=== PATIENT | female | born 1960 | race Caucasian/White ===

== ENCOUNTER 2016-09-13 05:19 | Inpatient (IN) ==
[2016-09-13] MEDS ORDERED: VANCOMYCIN INJ 1,000 MG in SODIUM CHLORIDE 0.9% 250 ML IV ONE (06:00)
[2016-09-13] MEDS ORDERED: ceFAZolin 1,000 MG VIAL ONE (06:00)
[2016-09-13] MEDS ORDERED: VANCOMYCIN 1,000 MG VIAL ONE (06:00)
[2016-09-13] MEDS ORDERED: SODIUM CHLORIDE 0.9% 100 ML IV ONE (06:01)
[2016-09-13] MEDS ORDERED: ALBUTEROL/IPRATROPIUM 3 ML NEB RESP TX SCH (07:00)
--- NOTE | 2016-09-13 07:04 | History and Physical Update ---
History and Physical Update - History and Physical H&P was reviewed, the patient examined and there: are no changes in the patients condition since last H&P was completed.
[2016-09-13] MEDS ORDERED: BISACODYL 10 MG SUPP RECTAL PRN (07:10)
[2016-09-13] MEDS ORDERED: MAGNESIUM HYDROXIDE SUSP 30 ML UDCUP PO PRN (07:10)
[2016-09-13] MEDS ORDERED: NALOXONE 0.4 MG/ML VIAL IV PRN (07:10)
[2016-09-13] MEDS ORDERED: ONDANSETRON 4 MG/2 ML VIAL IV PRN (07:10)
[2016-09-13] MEDS ORDERED: TEMAZEPAM 7.5 MG CAPSULE PO PRN (07:10)
[2016-09-13] MEDS ORDERED: LACTULOSE 20 GM/30 ML UDCUP PO PRN (07:10)
[2016-09-13] MEDS ORDERED: HYDROmorphone 2 MG/1 ML VIAL IV PRN (07:10)
[2016-09-13] MEDS ORDERED: diphenhydrAMINE CAP 25 MG CAPSULE PO PRN (07:10)
[2016-09-13] MEDS ORDERED: PROMETHAZINE 25 MG/1 ML VIAL IM PRN (07:10)
[2016-09-13] MEDS ORDERED: LORazepam 1 MG TABLET PO ONE (07:13)
[2016-09-13] MEDS ORDERED: PANTOPRAZOLE 40 MG TABLET PO ONE ×2 (07:13→07:46)
[2016-09-13] MEDS ORDERED: LORazepam 1 MG TABLET ONE (07:46)
[2016-09-13] MEDS ORDERED: TRANEXAMIC ACID 1,000 MG/10 ML VIAL IV ONE (08:46)
[2016-09-13] MEDS ORDERED: PHENYLEPHRINE 1 MG/10 ML SYRINGE IV ONE (09:06)
[2016-09-13] MEDS ORDERED: LIDOCAINE 1% 5 ML VIAL ONE (09:06)
[2016-09-13] MEDS ORDERED: PROPOFOL 200 MG/20 ML VIAL IV ONE (09:06)
[2016-09-13] MEDS ORDERED: ONDANSETRON 4 MG/2 ML VIAL ONE (09:06)
[2016-09-13 10:38] LABS: Apearance,Urine CLEAR (Clear); Bilirubin,Urine Negative (Negative); Blood, Urine Negative (Negative); Glucose,Urine (UA) Negative (Negative); Ketones,Urine Negative (Negative); Mucus,Urine Occasional /LPF (Occasional); Nitrite,Urine Negative (Negative); Protein,Urine Negative; RBC,Urine <1 /HPF (0-4); Urine Color Yellow (Yellow); Urine Specific Gravity 1.015 (1.001-1.035); WBC,Urine 1 /HPF (0-6)
[2016-09-13] MEDS ORDERED: fentaNYL 100 MCG/2 ML VIAL ONE (10:54)
[2016-09-13] MEDS ORDERED: MIDAZOLAM 2 MG/2 ML VIAL ONE (10:54)
[2016-09-13] MEDS ORDERED: HYDROmorphone PCA 30 MG/30 ML SYRINGE IV ONE (11:02)
[2016-09-13] MEDS: HYDROmorphone PCA 30 MG/30 ML SYRINGE IV SCH (11:06)
--- NOTE | 2016-09-13 11:48 | XRay Report ---
Exam: XR hip OR LT Date: 09/13/2016 12:00 AM Comparison: None Indication: Left total hip replacement Technique:[Portable AP left hip] Findings: Recent satisfactory left total hip replacement. Postoperative findings noted. Impression: Reason satisfactory left total hip replacement. PROCEDURE INTERPRETED AT [facility] DEPARTMENT OF RADIOLOGY Final Report Signed by: Dr. Nafisa Moses
[2016-09-13] MEDS: DOCUSATE SODIUM 100 MG CAPSULE PO SCH ×2 (12:05→20:53)
[2016-09-13] MEDS: LACTATED RINGERS 1,000 ML IV SCH (12:22)
--- NOTE | 2016-09-13 12:58 | Anesthesia Post-Op ---
Anesthesia Post OP - Post Ansesthetic Evaluation Patient seen in post op: Yes Resp: within normal limits CV: within normal limits Mental: within normal limits Temp: within normal limits [id number]: within normal limits Nausea and Vomiting: within normal limits Pain: within normal limits
--- NOTE | 2016-09-13 16:43 | Pulmonology Consult Note ---
Assessment and Plan (1) Postop left hip replaced Status: Acute Assessment and plan: Not having much pain. She will need to get up and walk more. She look forward to doing that. Current Visit: Yes (2) COPD (chronic obstructive pulmonary disease) Status: Acute Assessment and plan: She is a persistent cigarette smoker up until admission. Advised to stop smoking here. She was on oxygen prior to admission. Her COPD is really not severe. Low flow oxygen should suffice. Current Visit: No History of Present Illness Chief complaint: Postop left hip replacement History of present illness: Ms. Guthrie is a 56 year old female who was seen by us about 2 weeks ago in the office for clearance for the surgery. She is a long-term cigarette smoker. She has been diagnosed as having mild chronic obstructive pulmonary disease. She is on oxygen at home. She has not had any recent flareups. Since surgery she is doing okay. She is not short of breath and not having a lot of pain. She says she is anxious to get up and start with physical therapy. Home Medications Medication Instructions Recorded Confirmed Type Esomeprazole Magnesium [Nexium] 40 mg PO DAILY 12/13/15 09/13/16 History Pregabalin [Lyrica] 150 mg PO BID 12/13/15 09/13/16 History busPIRone [Buspar] 10 mg PO BID 12/13/15 09/13/16 History Atorvastatin [Lipitor] 10 mg PO DAILY 12/16/15 09/13/16 History Cholecalciferol (Vitamin D3) 1,000 unit PO BEDTIME 12/16/15 09/13/16 History [Vitamin D3] Hydrocodone/Acetaminophen 1 tablet PO QID PRN 12/16/15 09/13/16 History [Hydrocodon-Acetaminophn 10-325] Trazodone HCl 150 mg PO BEDTIME PRN 12/16/15 09/13/16 History Vortioxetine Hydrobromide 20 mg PO DAILY 12/16/15 09/13/16 History [Brintellix] hydrOXYzine HCl [Hydroxyzine HCl] 25 mg PO TID PRN 12/16/15 09/13/16 History Albuterol Inhaler [Proventil 2 puff INH Q4H PRN 09/13/16 09/13/16 History Inhaler] Albuterol Neb [Proventil Neb] 2.5 mg RESP TX Q8HR PRN 09/13/16 09/13/16 History Cyclobenzaprine [Flexeril] 10 mg PO TID 09/13/16 09/13/16 History Metoclopramide Liquid [Reglan 10 mg PO BID 09/13/16 09/13/16 History Liquid] Tiotropium Inhalation [Spiriva 18 mcg INH DAILY 09/13/16 09/13/16 History Handihaler] Allergies Allergy/AdvReac Type Severity Reaction Status Date / Time No Known Allergies Allergy Verified 09/04/16 07:55 12 point system: reviewed and no additional remarkable complaints except as stated - Constitutional Constitutional: Present: night sweats, weight loss (5 pounds in 6 months) - EENT Eyes: Present: requires corrective lense - Cardiovascular Cardiovascular: Present: PND - Respiratory Respiratory: Present: cough, dyspnea on exertion, wheezing - Gastrointestinal Gastrointestinal: Present: dyspepsia - Musculoskeletal Musculoskeletal: Present: arthralgias (Left hip pain), back pain Exam (Pulmonay) H&P - Constitutional Vitals: Period Temp Pulse Resp BP Sys/Vale Pulse Ox Last 24 Hr 97.3 F-97.8 F 62-84 16-20 92-112/51-79 89-96 Exam: Vital signs normal. O2 sat 96% on 3 L. Pupils react to light. Throat is clear. Neck supple no bruits. Chest is clear equal breath sounds. Heart normal rate and rhythm no murmurs no rubs no gallops. Abdomen soft nontender no masses. Bowel sounds present. Extremities no clubbing cyanosis or edema. She has a brace on the left leg. Bandage on the left hip. Calves are nontender. Wearing sequential compression hose. Medical,Surgical,& Family Hx - Medical History Psychological: History of: Anxiety Disorders, Psychiatric/Substance Abuse Tx ( Chronic Opioid Use) Neurology: No history of: Seizures HEENT: History of: Eye Problem (GLASSES), Dental Problems (dentures) Endocrine: History of: Dyslipidemia Rheumatology: History of;: Rheumatoid Arthritis Respiratory: History of: COPD Genitourinary: History of: Recurring Urinary Tract Infections Gastrointestinal: History of: GERD Musculoskeletal: History of: Musculoskeletal Problems (Chronic Hips and Back pain-pain clinic at [place]) Other: No history of: Anesthesia Reactions - Surgical History Abdominal Surgeries: Surgical HX of: Cholecystectomy Reproductive Surgeries: Surgical HX of;: Hysterectomy Orthopedic Surgeries: Surgical HX of;: Orthopedic Surgery (RIGHT FOOT), Total Hip Replacement (Bilateral) - Family History Family History: Reports;: Family Cancer (GRANDFATHER) - Social History Smoking Status: Current every day smoker Frequency of Alcohol Use: None Type of Drug Use: Opiates Results - Labs Lab Results: I have reviewed the past 24 hour labs Labs: Labs were reviewed on outpatient visit 2 weeks ago. Had normal hematocrit 43.2. White count slightly elevated at 14,900. PT/INR was normal. Chemistries showed creatinine of 0.73 BUN is 9 potassium 4.5. Urinalysis was normal. - Diagnostic Findings Procedure: Chest x-ray: image reviewed by me (Chest x-ray outpatient showed borderline enlargement of the german. Mild scarring in the lingula.)
--- NOTE | 2016-09-13 16:58 | Operative Note ---
DATE: 09/13/2016 PREOPERATIVE DIAGNOSIS: OSTEOARTHRITIS LEFT HIP. POSTOPERATIVE DIAGNOSIS: SAME. OPERATIVE PROCEDURE: Left total hip (S-ROM). SURGEON: Edward Toscano Jr., MD ANESTHESIA: Spinal. INDICATIONS: A 56-year-old white female with severe osteoarthritis left hip. She has done very well from a similar procedure on the right side and presenting today for her left to be done. She has se daily pain limiting ability to stand, ambulate, and perform functional activity including activities o f daily living. OPERATIVE PROCEDURE: The patient was taken to the operating room and under spinal anesthetic positio omer in the right lateral decubitus position. The left hip and lower extremity prepped and draped in usual sterile manner. She received Vancomycin and Ancef preoperatively. A curvilinear incision was made over the posterolateral aspect of the left hip. Sharp dissection was carried down through skin and subcutaneous tissue. The IT band and gluteus were split. The hip internally rotated, and short rotators and capsule were reflected off the back of the proximal femur. The capsule was split and pr eserved for later repair. The head was dislocated and resected. The acetabulum was exposed sequenti ally reaming up to 53 and 54 cup press-fit in place, secured with one screw and a 10-degree all polye thylene liner placed. The proximal femur was prepared for the S-ROM component, distal diameter measu ring 13, the sleeve was 18B small, the femoral stem was a 36 standard +8 neck. Trialed reduction hilaria ecting a -3 head. After removal of the trial components, the S-ROM sleeve and stem were inserted and then trialed reduction again selecting the -3 head. The hip was dislocated a final time as head exc hanged for the -3, 36 mm head and the hip relocated. It was stable through range of motion and limb lengths equalized. The hip was then irrigated. The capsule was closed with #1 Vicryl. Hemostasis v erified and two 1/8-inch Hemovac drains were placed. The IT band and gluteal layer closed with #1 Vi cryl, subcutaneous layer closed with 2-0 Vicryl, tono for skin. A sterile dressing was applied an d she was rolled supine, abduction pillow placed, taken to the recovery room in stable condition. In traoperative films confirming satisfactory position of her implants.
--- NOTE | 2016-09-13 17:33 | Orthopedic Progress Note ---
Orthopedics - Subjective Interval history: Comfortable neurovascular intact discussed up in a.m. Exam - Constitutional Vitals: Period Temp Pulse Resp BP Sys/Vale Pulse Ox Last 24 Hr 97.3 F-98.4 F 58-84 16-20 88-127/50-79 89-96
[2016-09-14 05:34] LABS: Calcium 8.3 MG/DL (8.5-10.1); Osmolality,Calculated 281.1 MOS/KG (273-304); Potassium 3.7 MMOL/L (3.5-5.1)
[2016-09-14] MEDS: FONDAPARINUX 2.5 MG/0.5 ML SYRINGE SUBCUT SCH (06:09)
[2016-09-14 06:42] LABS: Basophils % 0.2 % (0.0-0.8); Eosinophils # 0.2 10*3/uL (0.0-0.87); Eosinophils % 1.1 % (0.00-10.9); Hematocrit 33.9 VOL% (35.7-47.0); Hemoglobin 11.8 GM/DL (12.0-16.0); Immature Granulocytes % 0.4 %; Immature Granulocytes Absolute 0.08 #; Lymphocytes # 4.7 10*3/uL (1.4-4.0); Lymphocytes % 25.4 % (21.3-54.2); Mean Corpuscular HGB Conc 34.8 GM/DL (32-36); Mean Corpuscular Hemoglobin 33 PG (27-34); Mean Corpuscular Volume 94.4 FL (87-102); Mean Platelet Volume 11.7 FL (9.6-12.0); Monocytes # 1.4 10*3/uL (0.11-0.8); Monocytes % 7.3 % (1.7-12.7); Neutrophils # 12.1 10*3/uL (1.4-7.4); Neutrophils % 65.6 % (38.7-73.9); Platelet Count 194 T/CUMM (130-400); Red Blood Count 3.59 MC/CUMM (3.8-5.5); Red Cell Distribution Width 14.2 % (9.3-17.3); White Blood Count 18.5 T/CUMM (4-12)
[2016-09-14] MEDS: LACTATED RINGERS 1,000 ML IV SCH ×3 (07:05→22:38)
[2016-09-14] MEDS: HYDROmorphone PCA 30 MG/30 ML SYRINGE IV SCH (07:58)
--- NOTE | 2016-09-14 08:22 | Orthopedic Progress Note ---
Orthopedics - Subjective Interval history: H&H stable comfortable neurovascular intact drain removed will start PT today wanting to go home with home health likely this weekend discussed. Exam - Constitutional Vitals: Period Temp Pulse Resp BP Sys/Vale Pulse Ox Last 24 Hr 97.3 F-99.7 F 58-84 16-20 88-127/50-79 89-96 Results - Labs CBC & BMP: 09/14/16 03:47 09/14/16 03:47 Specialty Discharge - Follow Up or Referrals Follow up with: Edward Toscano Jr., MD [Physician] -
[2016-09-14] MEDS: DOCUSATE SODIUM 100 MG CAPSULE PO SCH ×2 (08:43→20:10)
--- NOTE | 2016-09-14 08:45 | Pulmonology Progress Note ---
Pulmonary - PN: Subj Interval history: This is a 56-year-old lady that had a left hip replacement yesterday. She has COPD. She uses oxygen at night at home. O2 sats have been acceptable here. She is not having any bronchospasm. Starting to get out of bed today. Exam (Progress Note) - Constitutional Vitals: Period Temp Pulse Resp BP Sys/Vale Pulse Ox Last 24 Hr 97.3 F-99.7 F 58-84 16-20 88-127/50-79 89-96 Exam: Vital signs normal. Pupils react to light. Throat is clear. Neck supple no bruits. Chest sounds clear. Heart normal rate rhythm no murmurs. Abdomen soft nontender no masses. Extremities no clubbing cyanosis edema. Bandage over left hip. Sequential compression hose in place Results - Labs CBC & BMP: 09/14/16 03:47 09/14/16 03:47 Lab Results: I have reviewed the past 24 hour labs Assessment and Plan (1) Postop left hip replaced Status: Acute Assessment and plan: Not having much pain. She will need to get up and walk more. She look forward to doing that. 09/14/2016 patient to start with physical therapy today. She said she did her rehab at home with her last hip replacement. Not clear whether she will need swing bed or rehab or go home. Current Visit: Yes (2) COPD (chronic obstructive pulmonary disease) Status: Acute Assessment and plan: She is a persistent cigarette smoker up until admission. Advised to stop smoking here. She was on oxygen prior to admission. Her COPD is really not severe. Low flow oxygen should suffice. 09/14/2016 continuing empiric bronchodilators. O2 sats look good. Current Visit: No Specialty Discharge - Follow Up or Referrals Follow up with: Edward Toscano Jr., MD [Physician] -
[2016-09-15] MEDS: FONDAPARINUX 2.5 MG/0.5 ML SYRINGE SUBCUT SCH (05:57)
[2016-09-15 06:23] LABS: Basophils % 0.2 % (0.0-0.8); Eosinophils # 0.5 10*3/uL (0.0-0.87); Hematocrit 30.9 VOL% (35.7-47.0); Hemoglobin 11.2 GM/DL (12.0-16.0); Immature Granulocytes % 0.5 %; Immature Granulocytes Absolute 0.08 #; Lymphocytes # 4.6 10*3/uL (1.4-4.0); Mean Corpuscular HGB Conc 36.2 GM/DL (32-36); Mean Corpuscular Hemoglobin 33 PG (27-34); Mean Corpuscular Volume 92.2 FL (87-102); Mean Platelet Volume 11.4 FL (9.6-12.0); Monocytes # 1.5 10*3/uL (0.11-0.8); Monocytes % 8.2 % (1.7-12.7); Neutrophils % 62.1 % (38.7-73.9); Platelet Count 186 T/CUMM (130-400); Red Blood Count 3.35 MC/CUMM (3.8-5.5); Red Cell Distribution Width 13.9 % (9.3-17.3); White Blood Count 17.8 T/CUMM (4-12)
[2016-09-15] MEDS: DOCUSATE SODIUM 100 MG CAPSULE PO SCH (08:55)
--- NOTE | 2016-09-15 09:09 | Orthopedic Progress Note ---
Orthopedics - Subjective Interval history: Comfortable H&H stable ambulating in the coppola wants to go home this afternoon discussed. Will follow up in 2 weeks Exam - Constitutional Vitals: Period Temp Pulse Resp BP Sys/Vale Pulse Ox Last 24 Hr 97.6 F-100.1 F 76-96 18-20 97-123/52-74 90-98 Results - Labs CBC & BMP: 09/15/16 05:41 09/14/16 03:47 Specialty Discharge - Follow Up or Referrals Follow up with: Edward Toscano Jr., MD [Physician] -
--- NOTE | 2016-09-15 09:11 | Discharge Summary ---
Hospital Course - Hospital Course Hospital Course: Admitted for elective left total hip discharged home Diagnosis - Discharge Diagnosis (1) Osteoarthritis of left hip Status: Acute Specialty Discharge - Follow Up or Referrals Follow up with: Edward Toscano Jr., MD [Physician] - Discharge Plan - Discharge Data Disposition: Disch To Home/Self Care Condition at Discharge: Stable Discharge Diet: advance to your usual diet Activity: ambulate only with your walker, as per physical therapy (Advancing weight-bear to full with hip precaution) Hygiene: may shower, keep area(s) dry Weight Bearing at Discharge: weight bear as tolerated Driving: not until seen by doctor - Discharge Medications New HYDROcodone/ACETAMIN 7.5-325 [[place] 7.5-325] 2 tablet PO Q4H PRN #30 tablet PRN Reason: Moderate Pain unrelieved by 1 Continue Pregabalin [Lyrica] 150 mg PO BID busPIRone [Buspar] 10 mg PO BID Esomeprazole Magnesium [Nexium] 40 mg PO DAILY Hydrocodone/Acetaminophen [Hydrocodon-Acetaminophn 10-325] 1 tablet PO QID PRN PRN Reason: Pain Cholecalciferol (Vitamin D3) [Vitamin D3] 1,000 unit PO BEDTIME Vortioxetine Hydrobromide [Brintellix] 20 mg PO DAILY hydrOXYzine HCl [Hydroxyzine HCl] 25 mg PO TID PRN PRN Reason: nerves Atorvastatin [Lipitor] 10 mg PO DAILY Trazodone HCl 150 mg PO BEDTIME PRN PRN Reason: Sleep Metoclopramide Liquid [Reglan Liquid] 10 mg PO BID Cyclobenzaprine [Flexeril] 10 mg PO TID Albuterol Inhaler [Proventil Inhaler] 2 puff INH Q4H PRN PRN Reason: Shortness Of Breath/Wheezing Albuterol Neb [Proventil Neb] 2.5 mg RESP TX Q8HR PRN PRN Reason: sob Tiotropium Inhalation [Spiriva Handihaler] 18 mcg INH DAILY - Follow Up or Referral Follow Up: Edward Toscano Jr., MD [Physician] - - Forms/Instructions Instructions: Total Hip Replacement (DC) Additional Discharge Instructions: Discharged home discharge medications [place] 7.5 #30 no refills enteric-coated aspirin once a day resume home meds advancing with walker P and PT as instructed. Weightbearing as tolerated with hip precautions follow-up with pa September 27 for staple removal Exam - Constitutional Vitals: Period Temp Pulse Resp BP Sys/Vale Pulse Ox Last 24 Hr 97.6 F-100.1 F 76-96 18-20 97-123/52-74 90-98 Discharge Results Labs on day of discharge: Labs from last 24 hours 09/15/16 05:41 WBC 17.8 H RBC 3.35 L Hgb 11.2 L Hct 30.9 L MCV 92.2 MCH 33 MCHC 36.2 H RDW 13.9 Plt Count 186 MPV 11.4 Neut % (Auto) 62.1 Lymph % (Auto) 26.0 [place] % (Auto) 8.2 Eos % (Auto) 3.0 Baso % (Auto) 0.2 Neut # (Auto) 11.0 H Lymph # (Auto) 4.6 H [place] # (Auto) 1.5 H Eos # (Auto) 0.5 Baso # (Auto) 0.0 Immature Gran % 0.5 Nucleated RBC % 0.0 Immature Gran # 0.08 Nucleated RBCs # 0.00 DS: Provider Date of admission: 09/13/16 05:19 Primary care physician: Alexey Santana MD Attending physician on admission: Edward Toscano Jr., MD Consults: 09/13/16 07:10 Consult to Case Mgmt/Social Srvs [CONS] Routine Reason for Case Mgmt/Social Srvs: Rehab Home Health Equipment Consult Comment: Bedside Commode, CPM, Walker Consult to Occupational Therapy [CONS] Routine Reason for Occupational Therapy: Evaluate and Treat Consult Comment: ADL's Consult to Physical Therapy [CONS] Routine Reason for Physical Therapy: Evaluate and Treat Gait Training 09/13/16 11:42 Consult to Physician [CONS] Routine Comment: Consulting Provider: Alexey Santana Consulting Provider Notified: Yes When should Consulting Provider be notified: Now Person Notified: beatriz [email or web address] Date Notified: 09/13/16 Time Notified: 12:59 Discharging clinician: Edward Toscano Jr., MD
--- NOTE | 2016-09-15 09:44 | Pulmonology Progress Note ---
Pulmonary - PN: Subj Interval history: This is a 56-year-old lady that had a left hip replacement yesterday. She has COPD. She uses oxygen at night at home. O2 sats have been acceptable here. She is not having any bronchospasm. Starting to get out of bed today. 09/15/2016 patient doing well with physical therapy post left hip replacement. She is going home to continue rehab there. She seems well motivated. Lungs have been clear. Exam (Progress Note) - Constitutional Vitals: Period Temp Pulse Resp BP Sys/Vale Pulse Ox Last 24 Hr 97.6 F-100.1 F 76-96 18-20 97-123/52-74 90-98 Exam: Vital signs normal. Pupils react to light. Throat is clear. Neck supple no bruits. Chest sounds clear. Heart normal rate rhythm no murmurs. Abdomen soft nontender no masses. Extremities no clubbing cyanosis edema. Bandage over left hip. Sequential compression hose in place Results - Labs CBC & BMP: 09/15/16 05:41 09/14/16 03:47 Lab Results: I have reviewed the past 24 hour labs Assessment and Plan (1) Postop left hip replaced Status: Acute Assessment and plan: Not having much pain. She will need to get up and walk more. She look forward to doing that. 09/14/2016 patient to start with physical therapy today. She said she did her rehab at home with her last hip replacement. Not clear whether she will need swing bed or rehab or go home. 09/15/2016 agree with plans for discharge. Current Visit: Yes (2) COPD (chronic obstructive pulmonary disease) Status: Acute Assessment and plan: She is a persistent cigarette smoker up until admission. Advised to stop smoking here. She was on oxygen prior to admission. Her COPD is really not severe. Low flow oxygen should suffice. 09/14/2016 continuing empiric bronchodilators. O2 sats look good. 09/15/2016 can follow in the office as required. Current Visit: No Specialty Discharge - Follow Up or Referrals Follow up with: Edward Toscano Jr., MD [Physician] -
[2016-09-15 11:31] VITALS: BP 121/58
--- NOTE | 2016-09-19 14:15 | Pathology Report from [facility] ---
[facility] ACCESSION # : [id number] PATIENT NAME : Francy Guthrie ORDERING DR : THAD WANG JR, MD CLINICAL HX: LT hip osteoarthritis POST-OP DX: Same SPECIMEN INFO: LT hip bone & tissue GROSS DESCRIPTION: Received in formalin labeled FRANCY GUTHRIE is a femoral head measuring 4.5 x 4.5 x 5.8 cm. The articular surfaces are focally degenerative with an area of subchondral eburnation seen measuring 2.0 x 0.8 cm. The cut surface is smooth with no softening appreciated. Received separately in the specimen container are fragments of hemorrhagic bone and soft tissue measuring 2.0 x 3.0 cm in aggregate. Foam Cutting Supervisor tissue is submitted in one cassette following decalcification. DIAGNOSIS FOR FRANCY GUTHRIE: LEFT HIP BONE & TISSUE: Marked chronic inflammation. Bone & bone marrow with trilineage hematopoiesis. Negative for malignancy.The following is a consultation from Dr. Ellis Leon at [facility], [place], [place]:LEFT HIP BONE & TISSUE: Bone & bone marrow with trilineage hematopoiesis. Negative for malignancy. See note.NOTE: CD138 highlights scattered plasma cells. Michael CK is negative. Case reviewed by Dr. Alexey Loaiza. COLLECTED DATE: 09/13/2016 [facility] REPORT DATE: 09/19/2016 ELECTRONICALLY SIGNED BY: Tuan Taylor III, M.D. 09/19/2016 - 13:46:28 [facility]
== END 2016-09-15 12:00 | disposition home or self-care (01) | DRG 301 ==
LOC: N.SDSINP 05:19 → N.3E 11:33
PROVIDERS: ADMIT Orthopaedic Surgery; ATTEND Orthopaedic Surgery

== ENCOUNTER 2018-03-01 18:40 | Observation (INO) ==
[2018-03-01 20:31] LABS: Mean Corpuscular Volume 93.8 FL (87-102); Mean Platelet Volume 10.8 FL (9.6-12.0); Monocytes # 0.8 10*3/uL (0.11-0.8)
[2018-03-01] MEDS ORDERED: ASPIRIN CHEW 81 MG TABLET PO STA (20:37)
[2018-03-01 20:42] LABS: Basophils # 0.1 10*3/uL (0.0-0.2); Basophils % 0.8 % (0.0-0.8); Eosinophils # 0.3 10*3/uL (0.0-0.87); Eosinophils % 1.9 % (0.00-10.9); Hematocrit 42.1 VOL% (35.7-47.0); Hemoglobin 14.7 GM/DL (12.0-16.0); Immature Granulocytes % 0.2 %; Immature Granulocytes Absolute 0.03 #; Lymphocytes # 7.9 10*3/uL (1.4-4.0); Lymphocytes % 57.2 % (21.3-54.2); Mean Corpuscular HGB Conc 34.9 GM/DL (32-36); Mean Corpuscular Hemoglobin 33 PG (27-34); Neutrophils # 4.7 10*3/uL (1.4-7.4); Neutrophils % 33.9 % (38.7-73.9); Platelet Count 251 T/CUMM (130-400); Red Blood Count 4.49 MC/CUMM (3.8-5.5); Red Cell Distribution Width 13.6 % (9.3-17.3); White Blood Count 13.8 T/CUMM (4-12)
[2018-03-01 20:59] LABS: Alanine Aminotransferase 22 U/L (13-56); Albumin 3.4 G/DL (3.4-5.0); Alkaline Phosphatase 93 U/L (45-117); Aspartate Amino Transferase 16 U/L (0-37); Blood Urea Nitrogen 12 MG/DL (7-18); Calcium 9.3 MG/DL (8.5-10.1); Glucose 108 MG/DL (74-106); Osmolality,Calculated 279.4 MOS/KG (273-304); Potassium 3.2 MMOL/L (3.5-5.1); Sodium 140 MMOL/L (136-145); Troponin I < 0.015 NG/ML (0.00-0.045)
[2018-03-01] MEDS ORDERED: ASPIRIN 325 MG TABLET ONE (21:04)
[2018-03-01 21:16] LABS: Atypical Lymphocytes Few; Eosinophils 2 % (0-10); Lymphocytes 57 % (20-55); Platelet Estimate Normal; Segmented Neutrophils 36 % (50-85); Total Cells Counted 100
[2018-03-01] MEDS ORDERED: POTASSIUM CHLORIDE 20 MEQ TABLET PO PRN (21:49)
[2018-03-01] MEDS ORDERED: diphenhydrAMINE CAP 25 MG CAPSULE PO PRN (21:49)
[2018-03-01] MEDS ORDERED: MAGNESIUM SULF RIDER 2 GM in PREMIX 1 EACH IV PRN (21:49)
[2018-03-01] MEDS ORDERED: NICOTINE 21 MG/24 HR PATCH TRANSDERM PRN (21:49)
[2018-03-01] MEDS ORDERED: ACETAMINOPHEN 325 MG TABLET PO PRN (21:49)
[2018-03-01] MEDS ORDERED: ZALEPLON 5 MG CAPSULE PO PRN (21:49)
[2018-03-01] MEDS ORDERED: ONDANSETRON 4 MG/2 ML VIAL IV PRN (21:49)
[2018-03-01] MEDS ORDERED: NITROGLYCERIN SL 0.4 MG TABLET SL PRN (21:49)
[2018-03-01] MEDS ORDERED: MAGNESIUM SULF RIDER 4 GM in PREMIX 1 EACH IV PRN (21:49)
[2018-03-01] MEDS ORDERED: MORPHINE 4 MG/1 ML VIAL IV PRN (21:49)
[2018-03-01 22:18] LABS: Risk Ratio 3.7; Thyroid Stimulating Hormone 1.2 uIU/ml (0.358-3.74); VLDL CHOLESTEROL 21.2 MG/DL
[2018-03-01] MEDS ORDERED: hydrOXYzine HCL 25 MG TABLET PO PRN (23:15)
[2018-03-01] MEDS ORDERED: ALBUTEROL 2.5 MG/3 ML NEB RESP TX PRN ×2 (23:15)
[2018-03-02 04:19] LABS: Basophils # 0.1 10*3/uL (0.0-0.2); Basophils % 0.7 % (0.0-0.8); Eosinophils # 0.3 10*3/uL (0.0-0.87); Eosinophils % 2.2 % (0.00-10.9); Hematocrit 42.7 VOL% (35.7-47.0); Hemoglobin 14.3 GM/DL (12.0-16.0); Immature Granulocytes % 0.3 %; Immature Granulocytes Absolute 0.04 #; Lymphocytes # 6.7 10*3/uL (1.4-4.0); Lymphocytes % 54.7 % (21.3-54.2); Mean Corpuscular HGB Conc 33.5 GM/DL (32-36); Mean Corpuscular Hemoglobin 32 PG (27-34); Mean Corpuscular Volume 95.3 FL (87-102); Mean Platelet Volume 10.9 FL (9.6-12.0); Monocytes # 0.9 10*3/uL (0.11-0.8); Monocytes % 7.2 % (1.7-12.7); Neutrophils # 4.3 10*3/uL (1.4-7.4); Neutrophils % 34.9 % (38.7-73.9); Platelet Count 247 T/CUMM (130-400); Red Blood Count 4.48 MC/CUMM (3.8-5.5); Red Cell Distribution Width 13.6 % (9.3-17.3); White Blood Count 12.3 T/CUMM (4-12)
[2018-03-02 05:11] LABS: Calcium 8.8 MG/DL (8.5-10.1); Osmolality,Calculated 285.8 MOS/KG (273-304); Potassium 3.9 MMOL/L (3.5-5.1)
[2018-03-02 05:36] LABS: Atypical Lymphocytes Few; Eosinophils 3 % (0-10); Lymphocytes 60 % (20-55); Segmented Neutrophils 34 % (50-85); Total Cells Counted 100
[2018-03-02 05:37] LABS: Hypochromasia 1+; Platelet Estimate Normal
[2018-03-02] MEDS: IPRATROPIUM 500 MCG/2.5 ML NEB RESP TX SCH ×3 (08:01→19:33)
[2018-03-02] MEDS ORDERED: VORTIOXETINE HYDROBROMIDE 20 MG PO SCH (09:00)
[2018-03-02] MEDS ORDERED: FORADIL INH SCH (09:00)
[2018-03-02] MEDS: ENOXAPARIN 40 MG/0.4 ML SYRINGE SUBCUT SCH (09:40)
[2018-03-02] MEDS: busPIRone 15 MG TABLET PO SCH ×2 (09:40→21:05)
[2018-03-02] MEDS: PANTOPRAZOLE 40 MG TABLET PO SCH (09:40)
[2018-03-02] MEDS: METOCLOPRAMIDE 10 MG/10 ML UDCUP PO SCH ×2 (09:40→21:05)
[2018-03-02] MEDS: PREGABALIN 75 MG CAPSULE PO SCH ×2 (09:40→21:05)
[2018-03-02] MEDS: NICOTINE 21 MG/24 HR PATCH TRANSDERM SCH (17:09)
[2018-03-02] MEDS ORDERED: ATORVASTATIN 10 MG TABLET PO SCH (21:00)
[2018-03-02] MEDS: traMADol 50 MG TABLET PO SCH (23:00)
[2018-03-02] MEDS: ACETAMINOPHEN 325 MG TABLET PO SCH (23:00)
[2018-03-03] MEDS: IPRATROPIUM 500 MCG/2.5 ML NEB RESP TX SCH ×2 (01:18→08:01)
[2018-03-03 05:21] LABS: Basophils # 0.1 10*3/uL (0.0-0.2); Basophils % 0.7 % (0.0-0.8); Eosinophils # 0.3 10*3/uL (0.0-0.87); Hematocrit 42.1 VOL% (35.7-47.0); Hemoglobin 14.3 GM/DL (12.0-16.0); Immature Granulocytes % 0.2 %; Immature Granulocytes Absolute 0.03 #; Lymphocytes # 8.2 10*3/uL (1.4-4.0); Lymphocytes % 57.9 % (21.3-54.2); Mean Corpuscular Hemoglobin 33 PG (27-34); Mean Corpuscular Volume 96.6 FL (87-102); Mean Platelet Volume 11.1 FL (9.6-12.0); Monocytes # 0.8 10*3/uL (0.11-0.8); Monocytes % 5.6 % (1.7-12.7); Neutrophils # 4.8 10*3/uL (1.4-7.4); Neutrophils % 33.6 % (38.7-73.9); Platelet Count 244 T/CUMM (130-400); Red Blood Count 4.36 MC/CUMM (3.8-5.5); Red Cell Distribution Width 13.6 % (9.3-17.3); White Blood Count 14.2 T/CUMM (4-12)
[2018-03-03 05:35] LABS: Calcium 8.9 MG/DL (8.5-10.1); Potassium 3.8 MMOL/L (3.5-5.1)
[2018-03-03 06:23] LABS: Band Neutrophils 1 % (0-10); Eosinophils 5 % (0-10); Hypochromasia Slight; Lymphocytes 52 % (20-55); Platelet Estimate Normal; Polychromasia Few; Segmented Neutrophils 33 % (50-85); Total Cells Counted 100
[2018-03-03 08:20] VITALS: BP 138/61
[2018-03-03] MEDS: NICOTINE 21 MG/24 HR PATCH TRANSDERM SCH (08:34)
[2018-03-03] MEDS: PREGABALIN 75 MG CAPSULE PO SCH (08:35)
[2018-03-03] MEDS: busPIRone 15 MG TABLET PO SCH (08:35)
[2018-03-03] MEDS: PANTOPRAZOLE 40 MG TABLET PO SCH (08:35)
[2018-03-03] MEDS: METOCLOPRAMIDE 10 MG/10 ML UDCUP PO SCH (08:35)
[2018-03-03] MEDS: ACETAMINOPHEN 325 MG TABLET PO SCH (08:36)
[2018-03-03] MEDS: traMADol 50 MG TABLET PO SCH (08:36)
[2018-03-03] MEDS: ENOXAPARIN 40 MG/0.4 ML SYRINGE SUBCUT SCH (08:36)
[2018-03-03] MEDS ORDERED: AZITHROMYCIN 250 MG TABLET PO SCH (09:00)
== END 2018-03-03 12:20 | disposition home or self-care (01) ==
LOC: N.EDINP 18:40 → N.ED 18:40 → SUATTDRO 21:49 → N.TELEN 22:36
PROVIDERS: ADMIT Internal Medicine; ATTEND Internal Medicine

== ENCOUNTER 2022-04-04 19:41 | Inpatient (IN) ==
[2022-04-04] MEDS ORDERED: ONDANSETRON 4 MG/2 ML VIAL IV STA (22:38)
[2022-04-04] MEDS ORDERED: PANTOPRAZOLE 40 MG VIAL IV STA (22:38)
[2022-04-04] MEDS ORDERED: methylPREDNISolone SOD SUC 125 MG/2 ML VIAL IV STA (22:38)
[2022-04-04] MEDS ORDERED: ALBUTEROL/IPRATROPIUM 3 ML NEB RESP TX STA (22:38)
[2022-04-04] MEDS ORDERED: SODIUM CHLORIDE 0.9% 500 ML IV STA (22:38)
[2022-04-04 22:50] LABS: RBC,Urine 1 /HPF (0-4); Squamous Epithelial Cell,Urine Occasional /HPF (0-10)
[2022-04-04 22:53] LABS: Basophils # 0.1 10*3/uL (0.0-0.2); Basophils % 0.5 % (0.0-0.8); Bilirubin,Urine Negative (Negative); Blood, Urine Trace mg/dL (Negative); Eosinophils # 0.2 10*3/uL (0.0-0.87); Eosinophils % 1.2 % (0.00-10.9); Glucose,Urine (UA) Negative (Negative); Hematocrit 35.7 VOL% (35.7-47.0); Hemoglobin 11.8 GM/DL (12.0-16.0); Immature Granulocytes % 0.3 %; Immature Granulocytes Absolute 0.04 #; Ketones,Urine Negative (Negative); Lymphocytes # 5.2 10*3/uL (1.4-4.0); Lymphocytes % 41.1 % (21.3-54.2); Mean Corpuscular HGB Conc 33.1 GM/DL (32-36); Mean Corpuscular Volume 84.2 FL (87-102); Mean Platelet Volume 10.6 FL (9.6-12.0); Monocytes # 0.9 10*3/uL (0.11-0.8); Monocytes % 6.9 % (1.7-12.7); Nitrite,Urine Negative (Negative); Platelet Count 417 T/CUMM (130-400); Protein,Urine Negative (Negative); Red Blood Count 4.24 MC/CUMM (3.8-5.5); Red Cell Distribution Width 16.9 % (9.3-17.3); Urine Appearance Clear (Clear); Urine Color Yellow (Yellow); Urine Urobilinogen 0.2 eU/dL (<2.0); White Blood Count 12.7 T/CUMM (4-12)
[2022-04-04 22:55] LABS: PT Patient Result 10.9 SECS (10.1-12.1)
[2022-04-04 23:33] LABS: Alanine Aminotransferase 12 U/L (13-56); Albumin 3.2 G/DL (3.4-5.0); Alkaline Phosphatase 98 U/L (45-117); Aspartate Amino Transferase 15 U/L (0-37); Bilirubin,Total < 0.39 MG/DL (0.20-1.00); Blood Urea Nitrogen 5 MG/DL (7-18); Calcium 9.6 MG/DL (8.5-10.1); Carbon Dioxide 22 MMOL/L (21-32); Chloride 104 MMOL/L (98-107); Glucose 107 MG/DL (74-106); Osmolality,Calculated 271.7 MOS/KG (273-304); Potassium 4.1 MMOL/L (3.5-5.1); Sodium 138 MMOL/L (136-145); Total Protein 6.7 G/DL (6.4-8.2)
[2022-04-05] MEDS ORDERED: ACETAMINOPHEN 325 MG TABLET PO PRN (03:29)
[2022-04-05] MEDS ORDERED: NICOTINE 21 MG/24 HR PATCH TRANSDERM PRN (03:29)
[2022-04-05] MEDS ORDERED: hydrALAZINE 20 MG/1 ML VIAL IV PRN (03:29)
[2022-04-05] MEDS ORDERED: ONDANSETRON 4 MG/2 ML VIAL IV PRN (03:29)
[2022-04-05] MEDS ORDERED: MORPHINE 2 MG/1 ML SYRINGE IV PRN (03:29)
[2022-04-05 05:47] LABS: Basophils % 0.3 % (0.0-0.8); Eosinophils % 0.1 % (0.00-10.9); Hematocrit 35.6 VOL% (35.7-47.0); Hemoglobin 11.7 GM/DL (12.0-16.0); Immature Granulocytes % 0.5 %; Immature Granulocytes Absolute 0.04 #; Lymphocytes # 1.2 10*3/uL (1.4-4.0); Lymphocytes % 16.5 % (21.3-54.2); Mean Corpuscular HGB Conc 32.9 GM/DL (32-36); Mean Corpuscular Volume 85.2 FL (87-102); Mean Platelet Volume 10.9 FL (9.6-12.0); Monocytes # 0.1 10*3/uL (0.11-0.8); Monocytes % 0.7 % (1.7-12.7); Neutrophils % 81.9 % (38.7-73.9); Platelet Count 213 T/CUMM (130-400); Red Blood Count 4.18 MC/CUMM (3.8-5.5); Red Cell Distribution Width 16.9 % (9.3-17.3); White Blood Count 7.4 T/CUMM (4-12)
[2022-04-05 06:08] LABS: Calcium 9.8 MG/DL (8.5-10.1); Potassium 4.1 MMOL/L (3.5-5.1)
[2022-04-05] MEDS: ALBUTEROL/IPRATROPIUM 3 ML NEB RESP TX SCH ×3 (07:10→19:18)
[2022-04-05] MEDS: INSULIN LISPRO 100 UNIT/ML SUBCUT SCH ×4 (07:42→21:16)
[2022-04-05] MEDS ORDERED: PANTOPRAZOLE 40 MG TABLET PO SCH (09:00)
[2022-04-05] MEDS: PANTOPRAZOLE 40 MG VIAL IV SCH ×2 (09:16→21:10)
[2022-04-05 12:13] LABS: Free T4 (Free Thyroxine) 1.1 NG/DL (0.76-1.46); Thyroid Stimulating Hormone 0.597 uIU/ml (0.358-3.74)
[2022-04-05] MEDS ORDERED: GLUCAGON 1 MG VIAL IM PRN (13:12)
[2022-04-05] MEDS ORDERED: DEXTROSE 10% 250 ML BAG IV PRN (13:12)
[2022-04-06] MEDS: ALBUTEROL/IPRATROPIUM 3 ML NEB RESP TX SCH ×4 (01:31→19:16)
[2022-04-06 05:25] LABS: Basophils # 0.1 10*3/uL (0.0-0.2); Basophils % 0.4 % (0.0-0.8); Eosinophils # 0.1 10*3/uL (0.0-0.87); Eosinophils % 0.4 % (0.00-10.9); Hematocrit 30.3 VOL% (35.7-47.0); Hemoglobin 10.1 GM/DL (12.0-16.0); Immature Granulocytes % 0.4 %; Immature Granulocytes Absolute 0.05 #; Lymphocytes # 5.1 10*3/uL (1.4-4.0); Lymphocytes % 39.1 % (21.3-54.2); Mean Corpuscular HGB Conc 33.3 GM/DL (32-36); Mean Corpuscular Volume 84.4 FL (87-102); Monocytes # 0.9 10*3/uL (0.11-0.8); Monocytes % 7.2 % (1.7-12.7); Neutrophils % 52.5 % (38.7-73.9); Platelet Count 406 T/CUMM (130-400); Red Blood Count 3.59 MC/CUMM (3.8-5.5); Red Cell Distribution Width 16.9 % (9.3-17.3); White Blood Count 13.1 T/CUMM (4-12)
[2022-04-06 05:30] LABS: INR 0.9; PT Patient Result 10.3 SECS (10.1-12.1); Partial Thromboplastin Time 28.2 SECS (23.7-32.9)
[2022-04-06] MEDS ORDERED: BENZONATATE 100 MG CAPSULE PO ONE (07:30)
[2022-04-06] MEDS ORDERED: diphenhydrAMINE 50 MG/1 ML VIAL IM ONE (07:30)
[2022-04-06] MEDS ORDERED: MEPERIDINE 50 MG/1 ML VIAL IM ONE (07:30)
[2022-04-06] MEDS: INSULIN LISPRO 100 UNIT/ML SUBCUT SCH ×4 (07:39→20:44)
[2022-04-06] MEDS ORDERED: LIDOCAINE 2% 20 ML VIAL RESP TX ONE (08:00)
[2022-04-06] MEDS ORDERED: LIDOCAINE 1% 20 ML VIAL MISC INJ ONE (08:00)
[2022-04-06] MEDS ORDERED: LIDOCAINE 2% VISCOUS 100 ML BOTTLE SWISH/SPIT ONE (08:00)
[2022-04-06] MEDS: PANTOPRAZOLE 40 MG VIAL IV SCH ×2 (09:53→20:32)
[2022-04-06] MEDS ORDERED: GLUCAGON 1 MG VIAL IM PRN (13:12)
[2022-04-06] MEDS ORDERED: DEXTROSE 50% 25 GM/50 ML VIAL IV PRN (13:12)
[2022-04-06] MEDS: METOCLOPRAMIDE 10 MG/2 ML VIAL IV SCH (18:01)
[2022-04-07] MEDS: ALBUTEROL/IPRATROPIUM 3 ML NEB RESP TX SCH ×4 (00:11→20:10)
[2022-04-07] MEDS: METOCLOPRAMIDE 10 MG/2 ML VIAL IV SCH ×4 (01:30→18:00)
[2022-04-07 06:20] LABS: Basophils # 0.1 10*3/uL (0.0-0.2); Basophils % 0.5 % (0.0-0.8); Eosinophils # 0.1 10*3/uL (0.0-0.87); Eosinophils % 0.6 % (0.00-10.9); Hematocrit 31.7 VOL% (35.7-47.0); Hemoglobin 10.6 GM/DL (12.0-16.0); Immature Granulocytes % 0.3 %; Immature Granulocytes Absolute 0.03 #; Lymphocytes % 35.9 % (21.3-54.2); Mean Corpuscular HGB Conc 33.4 GM/DL (32-36); Mean Corpuscular Volume 85.2 FL (87-102); Monocytes % 8.6 % (1.7-12.7); Neutrophils % 54.1 % (38.7-73.9); Platelet Count 381 T/CUMM (130-400); Red Blood Count 3.72 MC/CUMM (3.8-5.5); Red Cell Distribution Width 17.2 % (9.3-17.3)
[2022-04-07 06:26] LABS: INR 0.9; PT Patient Result 10.5 SECS (10.1-12.1); Partial Thromboplastin Time 30.1 SECS (23.7-32.9)
[2022-04-07] MEDS ORDERED: MEPERIDINE 50 MG/1 ML VIAL IM ONE (07:30)
[2022-04-07] MEDS ORDERED: BENZONATATE 100 MG CAPSULE PO ONE (07:30)
[2022-04-07] MEDS ORDERED: diphenhydrAMINE 50 MG/1 ML VIAL IM ONE (07:30)
[2022-04-07] MEDS ORDERED: LIDOCAINE 1% 20 ML VIAL MISC INJ ONE (08:00)
[2022-04-07] MEDS ORDERED: LIDOCAINE 2% VISCOUS 100 ML BOTTLE SWISH/SPIT ONE (08:00)
[2022-04-07] MEDS ORDERED: LIDOCAINE 2% 20 ML VIAL RESP TX ONE (08:00)
[2022-04-07] MEDS: PANTOPRAZOLE 40 MG VIAL IV SCH ×2 (08:30→21:21)
[2022-04-07] MEDS: INSULIN LISPRO 100 UNIT/ML SUBCUT SCH ×4 (09:06→21:25)
[2022-04-07] MEDS ORDERED: MIDAZOLAM 2 MG/2 ML VIAL IV ONE ×4 (09:25→10:00)
[2022-04-07] MEDS ORDERED: EPINEPHrine 1 MG/ML VIAL ET ONE ×2 (09:39→10:00)
[2022-04-08] MEDS: METOCLOPRAMIDE 10 MG/2 ML VIAL IV SCH ×3 (00:04→11:25)
[2022-04-08] MEDS: ALBUTEROL/IPRATROPIUM 3 ML NEB RESP TX SCH ×2 (01:08→07:08)
[2022-04-08] MEDS: INSULIN LISPRO 100 UNIT/ML SUBCUT SCH ×2 (07:27→12:55)
[2022-04-08] MEDS: PANTOPRAZOLE 40 MG VIAL IV SCH (08:10)
[2022-04-08 12:03] VITALS: BP 101/56
[2022-04-10 02:26] LABS: M. Tuberculosis PCR Result Negative (Negative); M. Tuberculosis PCR Source BRONCH WASH
[2022-04-12 19:14] LABS: H pylori Specimen source STOOL; Helicobacter pylori Result Not Detected
== END 2022-04-08 16:35 | disposition home or self-care (01) | DRG 136 ==
LOC: EDUNIT# → EDBD → N.ED 19:41 → SUATTDRO 04-05 03:29 → N.EDINP 04-05 03:29 → N.3E 04-05 15:10
PROVIDERS: ADMIT Internal Medicine; ATTEND Internal Medicine
PROC: BRONCHB (2022-04-07 08:35)

== ENCOUNTER 2022-05-04 13:39 | Inpatient (IN) ==
[2022-05-04] MEDS ORDERED: ASPIRIN 325 MG TABLET PO STA (14:17)
[2022-05-04] MEDS ORDERED: ALBUTEROL/IPRATROPIUM 3 ML NEB RESP TX STA (14:18)
[2022-05-04] MEDS ORDERED: ONDANSETRON 4 MG/2 ML VIAL IV ONE (14:18)
[2022-05-04] MEDS ORDERED: MORPHINE 2 MG/1 ML SYRINGE IV ONE (14:18)
[2022-05-04 14:47] LABS: Arterial Base Excess iSTAT 6 MMOL/L (-2.5-2.5); Arterial Bicarbonate iSTAT 29.4 MMOL/L (20-26); Arterial O2 Saturation iSTAT 95 % (95-100); Arterial PCO2 iSTAT 38 MM HG (35-48); Arterial PO2 iSTAT 67 MM HG (80-95); Arterial Total CO2 iSTAT 31 MMO/L (23-27); Arterial pH iSTAT 7.494 (7.35-7.45)
[2022-05-04 15:38] LABS: Basophils # 0.1 10*3/uL (0.0-0.2); Basophils % 0.3 % (0.0-0.8); Eosinophils # 0.1 10*3/uL (0.0-0.87); Eosinophils % 0.5 % (0.00-10.9); Hematocrit 36.3 VOL% (35.7-47.0); Hemoglobin 11.9 GM/DL (12.0-16.0); Immature Granulocytes % 0.4 %; Immature Granulocytes Absolute 0.08 #; Lymphocytes # 4.5 10*3/uL (1.4-4.0); Lymphocytes % 24.2 % (21.3-54.2); Mean Corpuscular HGB Conc 32.8 GM/DL (32-36); Mean Corpuscular Volume 85.8 FL (87-102); Mean Platelet Volume 9.4 FL (9.6-12.0); Monocytes # 1.2 10*3/uL (0.11-0.8); Monocytes % 6.2 % (1.7-12.7); Neutrophils % 68.4 % (38.7-73.9); Platelet Count 563 T/CUMM (130-400); Red Blood Count 4.23 MC/CUMM (3.8-5.5); Red Cell Distribution Width 18.4 % (9.3-17.3); White Blood Count 18.6 T/CUMM (4-12)
[2022-05-04] MEDS ORDERED: AZITHROMYCIN INJ 500 MG in SODIUM CHLORIDE 0.9% 250 ML IV STA (15:48)
[2022-05-04] MEDS ORDERED: cefTRIAXone 1,000 MG in SODIUM CHLORIDE 0.9% 100 ML IV STA (15:48)
[2022-05-04 16:03] LABS: PT Patient Result 11.5 SECS (10.1-12.1)
[2022-05-04 16:24] LABS: Albumin 2.2 G/DL (3.4-5.0); Bilirubin,Total 0.6 MG/DL (0.20-1.00); Osmolality,Calculated 256.8 MOS/KG (273-304); Potassium 4.4 MMOL/L (3.5-5.1)
[2022-05-04] MEDS ORDERED: ACETAMINOPHEN 325 MG TABLET PO PRN (17:03)
[2022-05-04] MEDS ORDERED: MORPHINE 2 MG/1 ML SYRINGE IV PRN (17:03)
[2022-05-04] MEDS ORDERED: ONDANSETRON 4 MG/2 ML VIAL IV PRN (17:03)
[2022-05-04] MEDS ORDERED: DEXTROSE 10% 250 ML BAG IV PRN (17:28)
[2022-05-04] MEDS ORDERED: GLUCAGON 1 MG VIAL IM PRN (17:28)
[2022-05-04] MEDS ORDERED: HydrOXYzine PAMOATE 25 MG CAPSULE PO PRN (17:29)
[2022-05-04] MEDS: SODIUM CHLORIDE 0.9% 1,000 ML IV SCH (19:04)
[2022-05-04] MEDS: ALBUTEROL/IPRATROPIUM 3 ML NEB RESP TX SCH (19:46)
[2022-05-04] MEDS: VANCOMYCIN INJ 1,000 MG in SODIUM CHLORIDE 0.9% 250 ML IV SCH (21:35)
[2022-05-04] MEDS: methylPREDNISolone SOD SUC 40 MG/1 ML VIAL IV SCH (21:35)
[2022-05-04] MEDS: PIPERACILLIN/TAZOBACTAM 3,375 MG in SODIUM CHLORIDE 0.9% 100 ML IV SCH (23:29)
[2022-05-04] MEDS: guaiFENesin/DM ER 600-30 MG TABLET PO SCH (23:32)
[2022-05-04] MEDS: ENOXAPARIN 40 MG/0.4 ML SYRINGE SUBCUT SCH (23:32)
[2022-05-05] MEDS: ALBUTEROL/IPRATROPIUM 3 ML NEB RESP TX SCH ×4 (01:41→20:33)
[2022-05-05] MEDS: INSULIN LISPRO 100 UNIT/ML SUBCUT SCH ×5 (01:53→21:22)
[2022-05-05 05:25] LABS: Basophils % 0.2 % (0.0-0.8); Hematocrit 31.8 VOL% (35.7-47.0); Hemoglobin 10.2 GM/DL (12.0-16.0); Immature Granulocytes % 0.5 %; Immature Granulocytes Absolute 0.06 #; Lymphocytes # 1.3 10*3/uL (1.4-4.0); Lymphocytes % 9.8 % (21.3-54.2); Mean Corpuscular HGB Conc 32.1 GM/DL (32-36); Mean Corpuscular Volume 86.9 FL (87-102); Mean Platelet Volume 9.9 FL (9.6-12.0); Monocytes # 0.2 10*3/uL (0.11-0.8); Monocytes % 1.6 % (1.7-12.7); Neutrophils % 87.9 % (38.7-73.9); Platelet Count 491 T/CUMM (130-400); Red Blood Count 3.66 MC/CUMM (3.8-5.5); Red Cell Distribution Width 18.5 % (9.3-17.3); White Blood Count 12.9 T/CUMM (4-12)
[2022-05-05 05:35] LABS: Calcium 9.6 MG/DL (8.5-10.1); Osmolality,Calculated 275.5 MOS/KG (273-304)
[2022-05-05] MEDS: methylPREDNISolone SOD SUC 40 MG/1 ML VIAL IV SCH ×2 (08:10→20:16)
[2022-05-05] MEDS: PIPERACILLIN/TAZOBACTAM 3,375 MG in SODIUM CHLORIDE 0.9% 100 ML IV SCH ×2 (08:15→17:09)
[2022-05-05] MEDS: guaiFENesin/DM ER 600-30 MG TABLET PO SCH ×2 (09:00→20:23)
[2022-05-05] MEDS: ASPIRIN EC 81 MG TABLET PO SCH (09:00)
[2022-05-05] MEDS: VANCOMYCIN INJ 1,000 MG in SODIUM CHLORIDE 0.9% 250 ML IV SCH ×2 (09:00→20:23)
[2022-05-05] MEDS: PREGABALIN 50 MG CAPSULE PO SCH ×2 (09:00→20:22)
[2022-05-05] MEDS: PANTOPRAZOLE 40 MG TABLET PO SCH (09:00)
[2022-05-05] MEDS: SODIUM CHLORIDE 0.9% 1,000 ML IV SCH (18:46)
[2022-05-05] MEDS: ENOXAPARIN 40 MG/0.4 ML SYRINGE SUBCUT SCH (20:22)
[2022-05-05] MEDS: traZODone 50 MG TABLET PO SCH (21:22)
[2022-05-05] MEDS: AZITHROMYCIN INJ 500 MG in SODIUM CHLORIDE 0.9% 250 ML IV SCH (22:24)
[2022-05-06] MEDS: PIPERACILLIN/TAZOBACTAM 3,375 MG in SODIUM CHLORIDE 0.9% 100 ML IV SCH ×3 (00:58→15:44)
[2022-05-06] MEDS: ALBUTEROL/IPRATROPIUM 3 ML NEB RESP TX SCH ×6 (03:04→20:33)
[2022-05-06 04:50] LABS: Basophils % 0.1 % (0.0-0.8); Hematocrit 33.4 VOL% (35.7-47.0); Hemoglobin 10.8 GM/DL (12.0-16.0); Immature Granulocytes % 0.6 %; Lymphocytes # 2.2 10*3/uL (1.4-4.0); Lymphocytes % 14.1 % (21.3-54.2); Mean Corpuscular HGB Conc 32.3 GM/DL (32-36); Mean Corpuscular Volume 87.9 FL (87-102); Monocytes # 0.5 10*3/uL (0.11-0.8); Monocytes % 3.3 % (1.7-12.7); Neutrophils % 81.9 % (38.7-73.9); Platelet Count 522 T/CUMM (130-400); Red Cell Distribution Width 18.7 % (9.3-17.3); White Blood Count 15.8 T/CUMM (4-12)
[2022-05-06 05:20] LABS: Calcium 9.5 MG/DL (8.5-10.1); Osmolality,Calculated 275.5 MOS/KG (273-304)
[2022-05-06] MEDS: guaiFENesin/DM ER 600-30 MG TABLET PO SCH ×2 (08:53→21:49)
[2022-05-06] MEDS: ASPIRIN EC 81 MG TABLET PO SCH (08:53)
[2022-05-06] MEDS: PANTOPRAZOLE 40 MG TABLET PO SCH (08:54)
[2022-05-06] MEDS: PREGABALIN 50 MG CAPSULE PO SCH ×2 (08:54→21:48)
[2022-05-06] MEDS: methylPREDNISolone SOD SUC 40 MG/1 ML VIAL IV SCH ×2 (08:54→21:47)
[2022-05-06] MEDS: VANCOMYCIN INJ 1,000 MG in SODIUM CHLORIDE 0.9% 250 ML IV SCH ×2 (08:56→23:00)
[2022-05-06] MEDS: INSULIN LISPRO 100 UNIT/ML SUBCUT SCH ×4 (11:03→21:50)
[2022-05-06] MEDS: ENOXAPARIN 40 MG/0.4 ML SYRINGE SUBCUT SCH (21:48)
[2022-05-06] MEDS: traZODone 50 MG TABLET PO SCH (21:48)
[2022-05-06] MEDS: AZITHROMYCIN INJ 500 MG in SODIUM CHLORIDE 0.9% 250 ML IV SCH (21:51)
[2022-05-07] MEDS: ALBUTEROL/IPRATROPIUM 3 ML NEB RESP TX SCH ×5 (00:44→14:38)
[2022-05-07] MEDS: PIPERACILLIN/TAZOBACTAM 3,375 MG in SODIUM CHLORIDE 0.9% 100 ML IV SCH ×2 (00:45→09:42)
[2022-05-07 05:23] LABS: Basophils % 0.1 % (0.0-0.8); Hematocrit 30.8 VOL% (35.7-47.0); Hemoglobin 9.8 GM/DL (12.0-16.0); Immature Granulocytes % 0.6 %; Immature Granulocytes Absolute 0.09 #; Lymphocytes # 1.8 10*3/uL (1.4-4.0); Lymphocytes % 11.4 % (21.3-54.2); Mean Corpuscular HGB Conc 31.8 GM/DL (32-36); Mean Corpuscular Volume 87.5 FL (87-102); Monocytes # 0.5 10*3/uL (0.11-0.8); Monocytes % 3.1 % (1.7-12.7); Neutrophils % 84.8 % (38.7-73.9); Platelet Count 515 T/CUMM (130-400); Red Blood Count 3.52 MC/CUMM (3.8-5.5); Red Cell Distribution Width 18.9 % (9.3-17.3); White Blood Count 15.63 T/CUMM (4-12)
[2022-05-07 06:01] LABS: Calcium 9.7 MG/DL (8.5-10.1); Osmolality,Calculated 285.8 MOS/KG (273-304); Potassium 3.3 MMOL/L (3.5-5.1)
[2022-05-07] MEDS: INSULIN LISPRO 100 UNIT/ML SUBCUT SCH ×3 (09:41→17:52)
[2022-05-07] MEDS: methylPREDNISolone SOD SUC 40 MG/1 ML VIAL IV SCH (09:42)
[2022-05-07] MEDS: ASPIRIN EC 81 MG TABLET PO SCH (09:46)
[2022-05-07] MEDS: PREGABALIN 50 MG CAPSULE PO SCH (09:46)
[2022-05-07] MEDS: PANTOPRAZOLE 40 MG TABLET PO SCH (09:46)
[2022-05-07] MEDS: guaiFENesin/DM ER 600-30 MG TABLET PO SCH (09:46)
[2022-05-07] MEDS ORDERED: POTASSIUM CHLORIDE 20 MEQ TABLET PO ONE (10:22)
[2022-05-07] MEDS: VANCOMYCIN INJ 1,000 MG in SODIUM CHLORIDE 0.9% 250 ML IV SCH (11:06)
[2022-05-07 12:33] VITALS: BP 125/55
[2022-05-07] MEDS ORDERED: METOCLOPRAMIDE 10 MG/10 ML UDCUP PO SCH (16:30)
[2022-05-07] MEDS ORDERED: BUDESONIDE/FORMOTEROL 160-4.5 INHALER 6 GM INH SCH (21:00)
[2022-05-07] MEDS ORDERED: MONTELUKAST 10 MG TABLET PO SCH (21:00)
[2022-05-08] MEDS ORDERED: DOXYCYCLINE HYCLATE 100 MG CAPSULE PO SCH (09:00)
[2022-05-08] MEDS ORDERED: predniSONE 20 MG TABLET PO SCH (09:00)
[2022-05-08] MEDS ORDERED: CEFUROXIME 500 MG TABLET PO SCH (09:00)
== END 2022-05-07 17:51 | disposition home or self-care (01) | DRG 140 ==
LOC: EDBD → EDUNIT# → N.ED 13:39 → N.EDINP 17:03 → N.TELEN 05-05 14:00
PROVIDERS: ADMIT Hospitalist; ATTEND Hospitalist

== ENCOUNTER 2022-05-20 09:29 | Emergency (ER) ==
[2022-05-20 10:36] LABS: Basophils # 0.1 10*3/uL (0.0-0.2); Basophils % 0.3 % (0.0-0.8); Eosinophils # 0.1 10*3/uL (0.0-0.87); Eosinophils % 0.7 % (0.00-10.9); Hematocrit 35.6 VOL% (35.7-47.0); Hemoglobin 11.5 GM/DL (12.0-16.0); Immature Granulocytes % 0.8 %; Immature Granulocytes Absolute 0.15 #; Lymphocytes # 4.2 10*3/uL (1.4-4.0); Lymphocytes % 20.9 % (21.3-54.2); Mean Corpuscular HGB Conc 32.3 GM/DL (32-36); Mean Corpuscular Volume 85.4 FL (87-102); Neutrophils % 72.3 % (38.7-73.9); Platelet Count 530 T/CUMM (130-400); Red Blood Count 4.17 MC/CUMM (3.8-5.5); White Blood Count 19.96 T/CUMM (4-12)
[2022-05-20 10:56] LABS: Hypochromia 1+; Lymphocytes 20 % (20-55); Microcytosis Slight; Total Cells Counted 100
[2022-05-20 10:58] LABS: Albumin 2.8 G/DL (3.4-5.0); Bilirubin,Total 0.4 MG/DL (0.20-1.00); Osmolality,Calculated 263.4 MOS/KG (273-304); Potassium 3.5 MMOL/L (3.5-5.1); Total Protein 7.8 G/DL (6.4-8.2)
[2022-05-20] MEDS ORDERED: ONDANSETRON 4 MG/2 ML VIAL IV STA (10:58)
[2022-05-20] MEDS ORDERED: HYDROmorphone 1 MG/1 ML SYRINGE IV STA (10:58)
[2022-05-20] MEDS ORDERED: SODIUM CHLORIDE 0.9% 500 ML IV STA (11:36)
[2022-05-20] MEDS ORDERED: ACETAMINOPHEN 325 MG TABLET PO PRN (12:04)
[2022-05-20] MEDS ORDERED: ONDANSETRON 4 MG/2 ML VIAL IV PRN (12:04)
[2022-05-20 13:43] VITALS: BP 130/68
[2022-05-21] MEDS ORDERED: PANTOPRAZOLE 40 MG TABLET PO SCH (09:00)
== END 2022-05-21 07:04 | disposition home or self-care (01) ==
LOC: N.ED 09:29 → N.EDINP 09:29 → N.ED 05-21 07:06
PROVIDERS: ATTEND Family Medicine